=== PATIENT | male | born 1975 | race Hispanic/Latino ===

== ENCOUNTER 2018-09-24 20:55 | Emergency (ER) | payer BC | END 2018-09-24 21:57 | disposition home or self-care (01) | LOC: ERS 20:55 | DX: L03.312 Cellulitis of back [any part except buttock and flank] (principal); F17.210 Nicotine dependence, cigarettes, uncomplicated | CPT/HCPCS: 99282 ==

== ENCOUNTER 2024-01-18 12:40 | Inpatient (IN) | payer SELFPAY ==
[2024-01-18] MEDS ORDERED: Lidocaine 2% PF 5 ML VIAL ONE (12:54)
[2024-01-18] MEDS ORDERED: SUCCINYLCHOLINE/SOD CL,ISO/PF 200 MG/10 ML SYRINGE FS ONE (12:54)
[2024-01-18] MEDS ORDERED: PROPOFOL 20 ML ONE (12:54)
[2024-01-18] MEDS ORDERED: Iopamidol 15 ML ONE (12:59)
[2024-01-18] MEDS ORDERED: Famotidine/PF 20 mg/2ml Vial ONE (13:00)
[2024-01-18] MEDS ORDERED: fentaNYL 50 mcg/mL 1 mL Vial ONE (13:02)
[2024-01-18] MEDS ORDERED: CEFAZOLIN 2 GM VIAL ONE (13:28)
[2024-01-18] MEDS ORDERED: Ondansetron PF 4 MG/2 ML Vial ONE (14:33)
[2024-01-18] MEDS ORDERED: Meperidine HCl/PF 25 MG/ML VIAL SLOW IVP PRN (14:47)
[2024-01-18] MEDS ORDERED: Promethazine HCl 25 MG/ML VIAL IM PRN (14:47)
[2024-01-18] MEDS ORDERED: Ondansetron HCl/PF 4 MG/2 ML Vial IVP PRN (14:47)
[2024-01-18] MEDS ORDERED: Meperidine HCl/PF 25 MG (1 mL) VIAL ONE (15:17)
[2024-01-18] MEDS ORDERED: Glucagon 1 MG/ML KIT IM PRN (16:22)
[2024-01-18] MEDS ORDERED: Acetaminophen 325 MG TAB PO PRN (16:22)
[2024-01-18] MEDS ORDERED: Senokot S 8.6-50 MG TAB PO PRN (16:22)
[2024-01-18] MEDS ORDERED: Ondansetron PF 4 MG/2 ML Vial IVP PRN (16:22)
[2024-01-18] MEDS ORDERED: Dextrose 5% in Water 1,000 ML IV PRN (16:22)
[2024-01-18] MEDS ORDERED: Dextrose 50% Abboject 50 ML SYRINGE SLOW IVP PRN (16:22)
[2024-01-18] MEDS ORDERED: HYDROcodone/Acetaminophen 5/325 mg Tablet PO PRN (16:25)
[2024-01-18] MEDS ORDERED: Ketorolac Tromethamine 30 MG (1 mL) VIAL IVP PRN (17:34)
[2024-01-18] MEDS: Famotidine 20 MG TAB PO SCH (20:56)
[2024-01-18] MEDS: Insulin Regular, Human 100 UNIT/ML 10 ML VIAL SC PRN (20:58)
[2024-01-19 05:08] LABS: #Basophils 0.05 10x3/uL (0.0-0.2); %Basophils 0.7 % (0.0-1.0); %Eosinophils 1.6 % (0.0-10.0); %Lymphocytes 23.9 % (21.0-51.0); %Monocytes 7.4 % (0.0-10.0); %Neutrophils 66.4 % (42.0-75.0); Hematocrit 43.9 % (42.0-52.0); Hemoglobin 14.5 g/dL (14.0-18.0); Mean Corpuscular Hemoglobin 29.7 pg (27.0-31.0); Mean Corpuscular Volume 89.8 fL (78.0-98.0); Mean Platelet Volume 12.1 fL (7.4-10.4); Platelet Count 168 10x3/uL (130-400); RBC Distribution Width 12.8 % (11.5-14.5); Red Blood Cell (RBC) Count 4.89 mill/uL (4.70-6.10)
[2024-01-19 05:24] LABS: Anion Gap 9 mmol/L (10-20); BUN (Urea Nitrogen) 11 mg/dL (8.9-20.6); Calc. Creatinine Clearance 0 mL/min (70-130); Calcium 8.4 mg/dL (7.8-10.44); Carbon Dioxide 27 mmol/L (22-29); Chloride 105 mmol/L (98-107); Estimated GFR 107; Glucose 95 mg/dL (70-105); Potassium 3.6 mmol/L (3.5-5.1); Sodium 137 mmol/L (136-145)
[2024-01-19 11:37] VITALS: BP 131/84; TEMP 97.9
[2024-01-21] MEDS ORDERED: FLU (Fluarix Triv) TS24-25(6MOS UP)/PF 45 MCG/0.5 ML Syringe IM ONE (18:15)
== END 2024-01-19 12:35 | disposition home or self-care (01) | DRG 660 ==
LOC: SURG B 12:40 → OBSVTOIN 01-19 09:11
PROVIDERS: ADMIT Hospitalist; ATTEND Internal Medicine
PROC: 0TCB8ZZ Extirpation of Matter from Bladder, Via Natural or Artificial Opening Endoscopic (ICD-10-PCS; principal; 2024-01-18)
PROC: 0T768DZ Dilation of Right Ureter with Intraluminal Device, Via Natural or Artificial Opening Endoscopic (ICD-10-PCS; 2024-01-18)
PROC: 0TC68ZZ Extirpation of Matter from Right Ureter, Via Natural or Artificial Opening Endoscopic (ICD-10-PCS; 2024-01-18)
DX: N13.2 Hydronephrosis with renal and ureteral calculous obstruction (principal); E87.1 Hypo-osmolality and hyponatremia; N21.1 Calculus in urethra; E11.9 Type 2 diabetes mellitus without complications; N42.0 Calculus of prostate; Z98.890 Other specified postprocedural states; Z79.84 Long term (current) use of oral hypoglycemic drugs; Z79.899 Other long term (current) drug therapy
CPT/HCPCS: 36415; 36416; 74420; 80048; 85025; C1747; C2617; J1815; J2175; J2405; J2704; J3010; J3490; Q9967